=== PATIENT | female | born 1985 | race Hispanic/Latino ===

== ENCOUNTER 2021-04-19 12:08 | Inpatient (IN) | payer OTHER ==
[2021-04-19] MEDS ORDERED: Ondansetron PF 4 MG/2 ML Vial ONE (13:42)
[2021-04-19 14:01] LABS: #Monocytes 0.2 10x3/uL (0.0-1.1); #Neutrophils 6.1 10x3/uL (1.5-8.4); %Basophils 0.1 % (0.0-2.0); %Lymphocytes 8.8 % (18.0-47.0); %Monocytes 2.1 % (0.0-10.0); %Neutrophils 86.9 % (40.0-75.0); Hemoglobin 10.6 g/dL (12.0-15.5); Mean Corpuscular HGB CONC 31.9 g/dL (32.0-36.0); Mean Corpuscular Hemoglobin 27.7 pg (27.0-33.0); Mean Corpuscular Volume 86.9 fl (81.6-98.3); Mean Platelet Volume 11.8 fl (7.4-10.4); Platelet Count 201 10x3/uL (150-450); RBC Distribution Width 14.8 % (11.5-14.5); Red Blood Cell (RBC) Count 3.82 10x6/uL (3.90-5.03)
[2021-04-19 14:19] LABS: ALT (SGPT) 74 U/L (8-55); AST (SGOT) 85 U/L (5-34); Albumin 3.4 g/dL (3.5-5.0); Alkaline Phosphatase 101 U/L (40-110); Anion Gap 16 mmol/L (10-20); BUN (Urea Nitrogen) Less than 4 mg/dL (7.0-18.7); Bilirubin, Total 0.5 mg/dL (0.2-1.2); Calc. Creatinine Clearance 0 mL/min (70-130); Calcium 8.8 mg/dL (7.8-10.44); Carbon Dioxide 18 mmol/L (22-29); Chloride 106 mmol/L (98-107); Globulin 3.2 g/dL (2.4-3.5); Glucose 99 mg/dL (70-105); Protein, Total 6.6 g/dL (6.0-8.3); Sodium 137 mmol/L (136-145)
[2021-04-19] MEDS ORDERED: Acetaminophen 325 MG TAB PO PRN (18:47)
[2021-04-19] MEDS ORDERED: Ondansetron ODT 4 MG TAB PO PRN (18:52)
[2021-04-19] MEDS ORDERED: Dextrose 50% Abboject 50 ML SYRINGE SLOW IVP PRN (18:52)
[2021-04-19] MEDS ORDERED: Polyethylene Glycol 3350 17 GM Packet PO PRN (18:59)
[2021-04-19 20:37] VITALS: BMI 38.6
[2021-04-19] MEDS ORDERED: Dextrose 5% in Water 1,000 ML IV PRN (21:00)
[2021-04-19] MEDS: Potassium Chloride 20 MEQ TAB PO SCH (21:40)
[2021-04-19] MEDS ORDERED: Lactated Ringer's 1,000 ML IV SCH (21:45)
[2021-04-19] MEDS: Ondansetron PF 4 MG/2 ML Vial IVP PRN (22:32)
[2021-04-19] MEDS: Acetaminophen 500 MG TAB PO PRN (22:32)
[2021-04-20] MEDS ORDERED: guaiFENesin 100 MG/5 ML UDCUP PO SCH (01:15)
[2021-04-20] MEDS ORDERED: Dexamethasone Sod Phosphate 6 MG in Sodium Chloride 0.9% 50 ML IVPB SCH (06:00)
[2021-04-20] MEDS ORDERED: Dexamethasone 6 MG in Sodium Chloride 0.9% 50 ML IVPB SCH (06:00)
[2021-04-20] MEDS: Cholecalciferol (Vitamin D3) 400 UNITS TAB PO SCH (06:13)
[2021-04-20] MEDS: Aspirin 81 mg Enteric Coated Tablet PO SCH (06:13)
[2021-04-20] MEDS: Ascorbic Acid 500 mg Chewable Tablet PO SCH (06:13)
[2021-04-20] MEDS: Zinc Sulfate 220 MG CAP PO SCH (06:14)
[2021-04-20] MEDS: Potassium Chloride 20 MEQ TAB PO SCH ×3 (06:15→20:44)
[2021-04-20 06:16] LABS: #Monocytes 0.3 10x3/uL (0.0-1.1); #Neutrophils 5.7 10x3/uL (1.5-8.4); %Basophils 0.1 % (0.0-2.0); %Lymphocytes 10.9 % (18.0-47.0); %Monocytes 3.6 % (0.0-10.0); %Neutrophils 82.5 % (40.0-75.0); Mean Corpuscular HGB CONC 32.6 g/dL (32.0-36.0); Mean Corpuscular Hemoglobin 28.3 pg (27.0-33.0); Mean Corpuscular Volume 86.8 fl (81.6-98.3); Mean Platelet Volume 11.1 fl (7.4-10.4); Platelet Count 176 10x3/uL (150-450); Red Blood Cell (RBC) Count 3.18 10x6/uL (3.90-5.03); White Blood Cell (WBC) Count 6.9 10x3/uL (3.5-10.5)
[2021-04-20 06:21] LABS: ALT (SGPT) 60 U/L (8-55); AST (SGOT) 70 U/L (5-34); Albumin 2.8 g/dL (3.5-5.0); Alkaline Phosphatase 94 U/L (40-110); Anion Gap 11 mmol/L (10-20); BUN (Urea Nitrogen) Less than 4 mg/dL (7.0-18.7); Bilirubin, Total 0.5 mg/dL (0.2-1.2); Calc. Creatinine Clearance 224 mL/min (70-130); Calcium 8.4 mg/dL (7.8-10.44); Carbon Dioxide 19 mmol/L (22-29); Chloride 111 mmol/L (98-107); Globulin 2.7 g/dL (2.4-3.5); Glucose 102 mg/dL (70-105); Magnesium 1.7 mg/dL (1.6-2.6); Phosphorus 2.7 mg/dL (2.3-4.7); Potassium 3.2 mmol/L (3.5-5.1); Protein, Total 5.5 g/dL (6.0-8.3); Sodium 138 mmol/L (136-145)
[2021-04-20] MEDS ORDERED: Zolpidem Tartrate 5 MG TAB PO PRN (07:01)
[2021-04-20] MEDS ORDERED: Zolpidem Tartrate 5 MG TAB PO SCH (07:15)
[2021-04-20] MEDS: Enoxaparin Sodium 40 MG/0.4 ML SYRINGE SC SCH (08:11)
[2021-04-20 11:46] LABS: Base Excess (BEa) -5.6 mEq/L (-2.0 to +3.0); CO2 Tension 24.6 mmHg (35.0-45.0); Calcium, Ionized (arterial) 1.09 mmol/L (1.12-1.30); Carboxyhemoglobin (COHb) 0.3 gm% (0.0-3.0); Hemoglobin (Hb) 9.7 g/dL (12.0-16.0); O2 Tension (PaO2), arterial 49.5 mmHg (80.0-100.0); Potassium - ABG Lab 3.9 mmol/L (3.70-5.30); Puncture Site LRA; pH, Arterial 7.46 (7.35-7.45)
[2021-04-20] MEDS ORDERED: Lactated Ringer's 1,000 ML IV SCH (12:30)
[2021-04-20] MEDS: Acetaminophen 500 MG TAB PO PRN (12:51)
[2021-04-20] MEDS ORDERED: Tocilizumab 400 MG, Tocilizumab 200 MG in Sodium Chloride 0.9% 100 ML IV SCH (14:00)
[2021-04-20] MEDS ORDERED: REMDESIVIR 200 MG in Sodium Chloride 0.9% 250 ML 210 ML IV SCH (16:00)
[2021-04-20] MEDS ORDERED: Potassium Chloride 20 MEQ TAB PO SCH (19:45)
[2021-04-20] MEDS ORDERED: Cepastat Lozenges 1 LOZ PO PRN (20:02)
[2021-04-20 20:09] LABS: Potassium 4.1 mmol/L (3.5-5.1)
[2021-04-20] MEDS ORDERED: diphenhydrAMINE 50 MG/ML VIAL IVP SCH (20:15)
[2021-04-20] MEDS: Dexamethasone Sod Phosphate 6 MG in Sodium Chloride 0.9% 50 ML IVPB SCH (20:43)
[2021-04-20] MEDS: Guaifenesin DM 100-10/5 ML UDCUP PO PRN (21:58)
[2021-04-21] MEDS: Ondansetron PF 4 MG/2 ML Vial IVP PRN (02:45)
[2021-04-21] MEDS: Enoxaparin Sodium 40 MG/0.4 ML SYRINGE SC SCH (07:58)
[2021-04-21] MEDS ORDERED: Iron Polysaccharides Complex 150 MG CAP PO SCH (08:00)
[2021-04-21 08:17] LABS: #Monocytes 0.2 10x3/uL (0.0-1.1); #Neutrophils 5.1 10x3/uL (1.5-8.4); %Basophils 0.2 % (0.0-2.0); %Lymphocytes 13.7 % (18.0-47.0); %Neutrophils 80.1 % (40.0-75.0); Hemoglobin 9.9 g/dL (12.0-15.5); Mean Corpuscular HGB CONC 31.6 g/dL (32.0-36.0); Mean Corpuscular Hemoglobin 27.9 pg (27.0-33.0); Mean Corpuscular Volume 88.2 fl (81.6-98.3); Mean Platelet Volume 10.3 fl (7.4-10.4); Platelet Count 231 10x3/uL (150-450); RBC Distribution Width 15.2 % (11.5-14.5); Red Blood Cell (RBC) Count 3.55 10x6/uL (3.90-5.03); White Blood Cell (WBC) Count 6.3 10x3/uL (3.5-10.5)
[2021-04-21] MEDS: Aspirin 81 mg Enteric Coated Tablet PO SCH (08:26)
[2021-04-21] MEDS: Ascorbic Acid 500 mg Chewable Tablet PO SCH (08:26)
[2021-04-21] MEDS: Zinc Sulfate 220 MG CAP PO SCH (08:27)
[2021-04-21] MEDS: Cholecalciferol (Vitamin D3) 400 UNITS TAB PO SCH (08:27)
[2021-04-21 08:29] LABS: ALT (SGPT) 53 U/L (8-55); AST (SGOT) 59 U/L (5-34); Albumin 2.9 g/dL (3.5-5.0); Alkaline Phosphatase 98 U/L (40-110); Anion Gap 15 mmol/L (10-20); BUN (Urea Nitrogen) Less than 4 mg/dL (7.0-18.7); Bilirubin, Total 0.5 mg/dL (0.2-1.2); CRP (Inflammatory) 16.27 mg/dL (= or < 0.5); Calc. Creatinine Clearance 236 mL/min (70-130); Calcium 8.8 mg/dL (7.8-10.44); Carbon Dioxide 15 mmol/L (22-29); Chloride 114 mmol/L (98-107); Globulin 2.9 g/dL (2.4-3.5); Glucose 91 mg/dL (70-105); Magnesium 1.7 mg/dL (1.6-2.6); Potassium 4.4 mmol/L (3.5-5.1); Protein, Total 5.8 g/dL (6.0-8.3); Sodium 140 mmol/L (136-145)
[2021-04-21] MEDS: Acetaminophen 500 MG TAB PO PRN (08:30)
[2021-04-21] MEDS: Guaifenesin DM 100-10/5 ML UDCUP PO PRN (08:30)
[2021-04-21] MEDS ORDERED: hydrOXYzine 25 MG TAB PO PRN (08:32)
[2021-04-21] MEDS: hydrOXYzine 25 MG TAB PO SCH ×2 (08:39→13:37)
[2021-04-21] MEDS ORDERED: Aspirin 81 mg Enteric Coated Tablet PO SCH (09:00)
[2021-04-21] MEDS ORDERED: Ascorbic Acid 500 mg Chewable Tablet PO SCH (09:00)
[2021-04-21] MEDS ORDERED: Cholecalciferol (Vitamin D3) 400 UNITS TAB PO SCH (09:00)
[2021-04-21] MEDS ORDERED: Zinc Sulfate 220 MG CAP PO SCH (09:00)
[2021-04-21] MEDS: Dexamethasone Sod Phosphate 6 MG in Sodium Chloride 0.9% 50 ML IVPB SCH (09:29)
[2021-04-21 13:17] VITALS: BP 110/72; TEMP 97.9
[2021-04-21] MEDS ORDERED: REMDESIVIR 100 MG in Sodium Chloride 0.9% 250 ML 230 ML IV SCH (16:00)
== END 2021-04-21 14:50 | disposition short-term general hospital (02) | DRG 831 ==
LOC: CSHERS 12:08 → CSHLD 17:33 → CSHTELE 19:01 → CSHICU 04-20 11:52
PROVIDERS: ADMIT Obstetrics & Gynecology; ATTEND Obstetrics & Gynecology
PROC: 4A0HXCZ Measurement of Products of Conception, Cardiac Rate, External Approach (ICD-10-PCS; 2021-04-19)
PROC: 8E0ZXY6 Isolation (ICD-10-PCS; 2021-04-19)
PROC: XW033E5 Introduction of Remdesivir Anti-infective into Peripheral Vein, Percutaneous Approach, New Technology Group 5 (ICD-10-PCS; principal; 2021-04-20)
PROC: XW033H5 Introduction of Tocilizumab into Peripheral Vein, Percutaneous Approach, New Technology Group 5 (ICD-10-PCS; 2021-04-20)
DX: O98.512 Other viral diseases complicating pregnancy, second trimester (principal); U07.1 COVID-19; J12.82 Pneumonia due to coronavirus disease 2019; J96.01 Acute respiratory failure with hypoxia; O99.512 Diseases of the respiratory system complicating pregnancy, second trimester; E87.6 Hypokalemia; D64.9 Anemia, unspecified; Z3A.26 26 weeks gestation of pregnancy; O99.282 Endocrine, nutritional and metabolic diseases complicating pregnancy, second trimester; O99.012 Anemia complicating pregnancy, second trimester; D50.9 Iron deficiency anemia, unspecified
CPT/HCPCS: 36415; 36416; 36600; 71045; 71275; 80053; 81003; 81015; 82805; 83605; 83735; 83880; 84100; 84484; 85025; 85379; 86140; 93005; 93970; 94640; 94760; J1100; J1200; J1650; J2405; J3262; J3490; J7050; J7120

== ENCOUNTER 2021-07-18 13:41 | Inpatient (IN) | payer OTHER ==
[2021-07-18] MEDS ORDERED: Ibuprofen 800 MG TAB PO PRN (14:04)
[2021-07-18] MEDS ORDERED: HYDROcodone/Acetaminophen 5/325 mg Tablet PO PRN ×2 (14:04)
[2021-07-18] MEDS ORDERED: Butorphanol Tartrate 1 MG/ML VIAL SLOW IVP PRN (14:04)
[2021-07-18] MEDS ORDERED: Methylergonovine 0.2 MG/ML VIAL IM PRN (14:04)
[2021-07-18] MEDS ORDERED: Diphenoxylate HCl/Atropine Tablet PO PRN ×2 (14:04)
[2021-07-18] MEDS ORDERED: Lidocaine 1% (PF) 30 ML VIAL SC PRN (14:04)
[2021-07-18] MEDS ORDERED: hydrALAZINE 20 MG/ML VIAL SLOW IVP PRN (14:04)
[2021-07-18] MEDS ORDERED: Ondansetron PF 4 MG/2 ML Vial IVP PRN (14:04)
[2021-07-18] MEDS ORDERED: Misoprostol 200 MCG TAB PR PRN (14:04)
[2021-07-18] MEDS ORDERED: Promethazine HCl 25 MG/ML VIAL IM PRN (14:04)
[2021-07-18] MEDS ORDERED: Carboprost 250 MCG/ML AMP IM PRN (14:04)
[2021-07-18] MEDS ORDERED: NS w/ Oxytocin 30 units 500 ML IV SCH ×2 (14:15)
[2021-07-18 14:29] VITALS: BMI 40.5
[2021-07-18 15:25] LABS: Hemoglobin 10.1 g/dL (12.0-15.5); Mean Corpuscular Volume 83.8 fl (81.6-98.3); Mean Platelet Volume 13.5 fl (7.4-10.4); RBC Distribution Width 15.2 % (11.5-14.5); Red Blood Cell (RBC) Count 3.89 10x6/uL (3.90-5.03); White Blood Cell (WBC) Count 10.4 10x3/uL (3.5-10.5)
[2021-07-18 15:39] LABS: Hep B Surf Ag Non-Reactive S/CO (NonReactive); Syphilis Antibody Nonreactive (Nonreactive); Syphilis Antibody Index 0.03 S/CO (<1.00 Non-Reactive)
[2021-07-18 15:43] LABS: Platelet Count 213 10x3/uL (150-450)
[2021-07-19] MEDS ORDERED: hydrOXYzine Pamoate 25 mg Capsule PO PRN (07:30)
[2021-07-19] MEDS: Misoprostol 100 MCG TAB VAG SCH (08:41)
[2021-07-19] MEDS ORDERED: Fentanyl 2 mcg/Bup 0.1% Cadd 100 ML ONE (14:10)
[2021-07-19] MEDS: Lactated Ringer's 1,000 ML IV SCH (15:00)
[2021-07-19] MEDS: ePHEDrine Sulfate 50 MG/10 ML VIAL SLOW IVP PRN ×2 (15:03→15:39)
[2021-07-19] MEDS ORDERED: Naloxone HCl 0.4 mg/ml Vial IVP PRN ×2 (15:12)
[2021-07-19] MEDS ORDERED: Ondansetron PF 4 MG/2 ML Vial IVP PRN (15:12)
[2021-07-19] MEDS ORDERED: Lactated Ringer's 500 ML IV PRN (15:12)
[2021-07-19] MEDS ORDERED: Promethazine HCl 25 MG/ML VIAL IM PRN (15:12)
[2021-07-19] MEDS ORDERED: Hydrocerin (Eucerin) Cream 120 gm Jar TOP PRN (15:12)
[2021-07-19] MEDS ORDERED: diphenhydrAMINE 50 MG/ML VIAL IVP PRN (15:12)
[2021-07-19] MEDS ORDERED: Communication Order-Pharmacy FS SCH (15:15)
[2021-07-19] MEDS ORDERED: Fentanyl 2 mcg/Bupivacaine 0.1% Cassette 100 ML EPIDURAL SCH (15:15)
[2021-07-19] MEDS ORDERED: Calcium Carbonate 500 MG ChewTAB PO PRN (17:35)
[2021-07-20] MEDS ORDERED: Lanolin Ointment 7 GM TUBE TOP PRN (00:36)
[2021-07-20] MEDS ORDERED: Benzocaine-Menthol 82.5 ML CAN TOP PRN (00:36)
[2021-07-20] MEDS ORDERED: hydrALAZINE 20 MG/ML VIAL SLOW IVP PRN (00:36)
[2021-07-20] MEDS ORDERED: diphenhydrAMINE 25 MG CAP PO PRN (00:36)
[2021-07-20] MEDS ORDERED: Preparation H Ointment 28 GM TUBE PR PRN (00:36)
[2021-07-20] MEDS ORDERED: Milk Of Magnesia 30 ML UDCUP PO PRN (00:36)
[2021-07-20] MEDS ORDERED: Ondansetron PF 4 MG/2 ML Vial IVP PRN (00:36)
[2021-07-20] MEDS ORDERED: HYDROcodone/Acetaminophen 10/325 mg Tablet PO PRN (00:36)
[2021-07-20] MEDS ORDERED: Boostrix 0.5 ML (Tdap) VIAL IM ONE (00:36)
[2021-07-20] MEDS ORDERED: Measles/Mumps/Rubella 10 MCG/0.5 ML VIAL SC ONE (00:36)
[2021-07-20] MEDS ORDERED: Bisacodyl 10 MG SUPP PR PRN (00:36)
[2021-07-20] MEDS: Acetaminophen 325 MG TAB PO PRN (01:08)
[2021-07-20] MEDS: HYDROcodone/Acetaminophen 10/325 mg Tablet PO PRN ×4 (02:52→21:05)
[2021-07-20] MEDS: Ibuprofen 800 MG TAB PO SCH ×4 (02:53→20:57)
[2021-07-20] MEDS: Ferrous Sulfate 325 MG TAB PO SCH ×2 (08:23→16:59)
[2021-07-20] MEDS: Prenatal Vitamin 1 TAB PO SCH (09:12)
[2021-07-20] MEDS: Docusate Calcium (SURFAK) 240 MG CAP PO SCH (09:12)
[2021-07-21] MEDS: HYDROcodone/Acetaminophen 10/325 mg Tablet PO PRN ×2 (01:02→07:13)
[2021-07-21] MEDS: Ibuprofen 800 MG TAB PO SCH ×2 (07:12→13:48)
[2021-07-21] MEDS: Docusate Calcium (SURFAK) 240 MG CAP PO SCH ×3 (07:30→09:54)
[2021-07-21] MEDS: Lactated Ringer's 1,000 ML IV SCH (07:32)
[2021-07-21] MEDS: Misoprostol 100 MCG TAB VAG SCH (07:33)
[2021-07-21 08:15] VITALS: BP 101/63; TEMP 97.5
[2021-07-21] MEDS: Ferrous Sulfate 325 MG TAB PO SCH (08:19)
[2021-07-21] MEDS: Prenatal Vitamin 1 TAB PO SCH (09:54)
[2021-07-21] MEDS: Acetaminophen 325 MG TAB PO PRN (11:30)
== END 2021-07-21 14:50 | disposition home or self-care (01) | DRG 807 ==
LOC: CSHLD 13:41 → CSHPP 07-20 02:26
PROVIDERS: ADMIT Obstetrics & Gynecology; ATTEND Obstetrics & Gynecology
PROC: 10E0XZZ Delivery of Products of Conception, External Approach (ICD-10-PCS; principal; 2021-07-19)
PROC: 0HQ9XZZ Repair Perineum Skin, External Approach (ICD-10-PCS; 2021-07-19)
PROC: 10907ZC Drainage of Amniotic Fluid, Therapeutic from Products of Conception, Via Natural or Artificial Opening (ICD-10-PCS; 2021-07-19)
PROC: 0U7C7ZZ Dilation of Cervix, Via Natural or Artificial Opening (ICD-10-PCS; 2021-07-19)
PROC: 3E033VJ Introduction of Other Hormone into Peripheral Vein, Percutaneous Approach (ICD-10-PCS; 2021-07-19)
PROC: 3E0P7VZ Introduction of Hormone into Female Reproductive, Via Natural or Artificial Opening (ICD-10-PCS; 2021-07-19)
DX: O36.8130 Decreased fetal movements, third trimester, not applicable or unspecified (principal); Z37.0 Single live birth; Z3A.39 39 weeks gestation of pregnancy; O70.0 First degree perineal laceration during delivery
CPT/HCPCS: 36415; 51702; 76815; 85027; 86780; 86850; 86900; 86901; 87340; 88307; J2405; J2590; J7120; Q0177